=== PATIENT | male | born 1990 | race Caucasian/White ===

== ENCOUNTER 2018-10-02 21:15 | Emergency (ER) | payer BC, OTHER ==
[2018-10-02] MEDS ORDERED: Tetan/Diph/Pertus SYR(Tdap)* 0.5 ML SYR(BOOSTRIX) use SYR IM ONE (21:42)
[2018-10-02] MEDS ORDERED: Amoxicillin/Clavulanate TAB* 875 MG PO ONE (21:43)
--- NOTE | 2018-10-02 21:44 | UC ---
Bite Injury/Animal HPI - HPI Summary HPI Summary: 27 yo male presents with dog bite to his face. He tells me that he has a corgi and a pitbull mix at home that are his dogs and they began to fight. He intervened and one of the dog bite his face. He states the dogs are UTD on vaccines. Pt is unsure of his tetanus status. He bandaged the area and came directly to . - History of Current Complaint Stated Complaint: DOG BITE Time Seen by Provider: 10/02/18 21:42 Hx Obtained From: Patient Severity Currently: Moderate Severity Initially: Moderate Pain Intensity: 5 Pain Scale Used: 0-10 Numeric Onset/Duration: Sudden Onset - Allergies/Home Medications Allergies/Adverse Reactions: Allergies Allergy/AdvReac Type Severity Reaction Status Date / Time No Known Allergies Allergy Verified 10/02/18 21:59 PMH/Surg Hx/FS Hx/Imm Hx - Additional Past Medical History Additional PMH: None - Surgical History Surgical History: None - Family History Known Family History: Positive: None - Social History Occupation: Employed Full-time Lives: With Family Alcohol Use: Occasionally Substance Use Type: None Smoking Status (MU): Never Smoked Tobacco Review of Systems All Other Systems Reviewed And Are Negative: Yes Constitutional: Positive: Negative Skin: Positive: Other - Dog bite left cheek Respiratory: Positive: Negative Cardiovascular: Positive: Negative Neurovascular: Positive: Negative Neurological: Positive: Negative Psychological: Positive: Negative Physical Exam - Summary Physical Exam Summary: GENERAL: NAD. WDWN. No pain distress. SKIN: LEFT cheek: 2.0cm linear laceration just through the epidermis with 4mm width when opening mouth. Clean and without FB. Overlying left manidble there is a 1.5cm linear superficial abrasion. DENTAL: No dental fracture. No lip laceration. CHEST: No accessory muscle use. Breathing comfortably and in no distress. CV: Pulses intact. Cap refill <2seconds NEURO: Alert. PSYCH: Age appropriate behavior. Triage Information Reviewed: Yes Vital Signs: Vital Signs: Temp Pulse Resp BP Pulse Ox 98.2 F 87 18 149/105 100 10/02/18 21:54 10/02/18 21:54 10/02/18 21:54 10/02/18 21:54 10/02/18 21:54 Vital Signs Reviewed: Yes Procedures - Laceration/Wound Repair 1 Location: face Description: Linear Anesthesia: 2.0% Irrigated w/ Saline (ccs): 200 Laceration/Wound Explored: clean, no foreign body removed Closure: Single Layer Suture Type: Prolene - 6-0 #3 Bite Injury Course/Dx - Course Course Of Treatment: The procedure was explained to the pt and all questions were answered. A time out was performed, witnessed, and signed. The area was irrigated with 200mL sterile saline. 1mL of 2% lidocaine without epi was administered and good anesthetization was achieved. In the usual sterile fashion, THREE 6-0 prolene interrupted sutures were placed. Pt tolerated procedure well. tdap updated today and first dose of Augmentin for infection prophylaxis was given. Advised to apply ice and monitor area for swelling, drainage, or increased pain and return if he develops these. Return in 5 days for suture removal - Differential Dx/Diagnosis Provider Diagnosis: Dog bite of face, Laceration of face Discharge - Sign-Out/Discharge Documenting (check all that apply): Patient Departure All imaging exams completed and their final reports reviewed: No Studies - Discharge Plan Condition: Stable Disposition: HOME Prescriptions: Amoxicillin/Clavulanate TAB* [Augmentin TAB 875*] 875 mg PO BID #14 tab Patient Education Materials: Animal Bite (ED) Referrals: No Primary Care Phys,NOPCP [Primary Care Provider] - Additional Instructions: If you develop a fever, shortness of breath, chest pain, new or worsening symptoms - please call your PCP or go to the ED immediately. 1) Please keep the area clean, dry, and intact for the next 24 hours. 2) If you develop a fever, colored or thick discharge, increased pain or swelling - please call your PCP or go to the ED. 3) Please return in 4-5 days to have your THREE sutures removed. 4) Take your antibiotic as prescribed 5) Apply ice to the area to decrease pain and swelling 6) Your tetanus shot was updated today - Billing Disposition and Condition Condition: STABLE Disposition: Home
[2018-10-02] MEDS ORDERED: Lidocaine 2% PF * 5 ML VIAL INJ ONE (21:54)
[2018-10-02 22:01] VITALS: BP 149/105
== END 2018-10-02 22:45 | disposition home or self-care (01) ==
LOC: UCEAST 21:15
DX: S01.412A Laceration without foreign body of left cheek and temporomandibular area, initial encounter (principal); W54.0XXA Bitten by dog, initial encounter; Y92.009 Unspecified place in unspecified non-institutional (private) residence as the place of occurrence of the external cause; Z23 Encounter for immunization
CPT/HCPCS: 12011; 90471; 90715; 99202; A9270-GY; G0463

== ENCOUNTER 2018-10-07 16:49 | Emergency (ER) | payer BC ==
--- NOTE | 2018-10-07 16:55 | UC ---
Laceration HPI - HPI Summary HPI Summary: 27 yo male presents for suture removal. He had 3 stitches placed by myself to left cheek on 10/02/18 s/p dog bite. Pt states area has been healing well without pain, erythema, or drainage. Denies fevers. - History Of Current Complaint Stated Complaint: SUTURE REMOVAL Hx Obtained From: Patient Laceration Location: Face - Allergies/Home Medications Allergies/Adverse Reactions: Allergies Allergy/AdvReac Type Severity Reaction Status Date / Time No Known Allergies Allergy Verified 10/07/18 17:05 PMH/Surg Hx/FS Hx/Imm Hx - Additional Past Medical History Additional PMH: None - Surgical History Surgical History: None - Family History Known Family History: Positive: None - Social History Lives: With Family Alcohol Use: Occasionally Substance Use Type: None Smoking Status (MU): Never Smoked Tobacco Review of Systems All Other Systems Reviewed And Are Negative: Yes Constitutional: Positive: Negative Skin: Positive: Other - 3 sutures in left cheek Respiratory: Positive: Negative Cardiovascular: Positive: Negative Neurovascular: Positive: Negative Neurological: Positive: Negative Psychological: Positive: Negative Physical Exam - Summary Physical Exam Summary: GENERAL: NAD. WDWN. No pain distress. SKIN: LEFT CHEEK: [address] Laceration well approximated and healed. No erythema, drainage, or tenderness. CHEST: No accessory muscle use. Breathing comfortably and in no distress. CV: Pulses intact. Cap refill <2seconds NEURO: Alert. PSYCH: Age appropriate behavior. Triage Information Reviewed: Yes Vital Signs: Vital Signs: Temp Pulse Resp BP Pulse Ox 99.0 F 80 18 138/85 95 10/07/18 17:04 10/07/18 17:04 10/07/18 17:04 10/07/18 17:04 10/07/18 17:04 Vital Signs Reviewed: Yes Laceration Course/Dx - Course/Dx Course Of Treatment: 3 sutures removed without difficulty. Wound well approximated and with dehiscence. - Diagnosis Provider Diagnosis: Visit for suture removal Discharge - Sign-Out/Discharge Documenting (check all that apply): Patient Departure All imaging exams completed and their final reports reviewed: No Studies - Discharge Plan Condition: Stable Disposition: HOME Patient Education Materials: Stitches Removal (ED) Referrals: No Primary Care Phys,NOPCP [Primary Care Provider] - Additional Instructions: If you develop a fever, shortness of breath, chest pain, new or worsening symptoms - please call your PCP or go to the ED immediately. Apply a band-aid to the area until fully healed - Billing Disposition and Condition Condition: STABLE Disposition: Home
[2018-10-07 17:05] VITALS: BP 138/85
== END 2018-10-07 17:05 | disposition home or self-care (01) ==
LOC: UCEAST 16:49
DX: Z48.02 Encounter for removal of sutures (principal)